=== PATIENT | male | born 1985 | race Caucasian/White ===

== ENCOUNTER 2020-09-11 17:17 | Emergency (ER) | payer SELFPAY ==
[~2020-09-11] VITALS: Ht 180.3 cm; Wt 81.7 kg
[~2020-09-11 17:17] MED LIST: ALBU90OI; ALBU90OI INH; AMOX500 PO; ANTOXYBENA RIGHTEAR; Augmentin 500-1 EACH PO; CEPH500 PO; CIPR500 PO; CLAR500 PO; CRUTCH3 USE; Cipro500 MG PO; FLUT.05NI; Flonase 0.05% N16 GM; HYDACE5 PO; HYDGUAL120 PO; Keflex500 MG PO; LEVO750 PO; NAPR500 PO; NEOPOLHYDS OT; Naprosyn500 MG PO; Norco 10-325 T1 EACH PO; OXYACE5T PO; PRED10 PO; PROM25 PO; PSEU120ER PO; Percocet 5-3251 EACH PO; Prednisone20 MG PO; RXHYD5325 PO; RXHYDACE PO; RXOXYACE PO; SULTRIDS PO; TRAM50 PO
[2020-09-11] MEDS ORDERED: CEPH500 PO (19:01)
[2020-09-11] MEDS ORDERED: Bactrim Ds Tab1 EACH PO (19:01)
== END 2020-09-11 19:10 | disposition home or self-care (01) ==
LOC: ER 17:17
DX: L05.01 Pilonidal cyst with abscess (principal); F17.210 Nicotine dependence, cigarettes, uncomplicated
CPT/HCPCS: 10080; 99282-25; A9270